=== PATIENT | male | born 1980 | race Hispanic/Latino ===

== ENCOUNTER 2018-08-05 10:07 | Emergency (ER) | payer BC | END 2018-08-05 10:58 | disposition home or self-care (01) | LOC: EDH 10:07 | DX: S29.8XXA Other specified injuries of thorax, initial encounter (principal); Z72.0 Tobacco use; W17.89XA Other fall from one level to another, initial encounter; Y93.89 Activity, other specified; Y92.89 Other specified places as the place of occurrence of the external cause; Y99.8 Other external cause status | CPT/HCPCS: 71111 ==